=== PATIENT | male | born 1980 | race Caucasian/White ===

== ENCOUNTER 2021-01-09 09:41 | Emergency (ER) | payer SELFPAY ==
[2021-01-09] MEDS ORDERED: Sodium Chloride 0.9% 2.5 ML Syringe FLUSH PRN (12:06)
[2021-01-09] MEDS ORDERED: Sodium Chloride 0.9% 10 ML Syringe FLUSH PRN (12:06)
[2021-01-09] MEDS ORDERED: cefTRIAXone 1 GM in Premix Bag 1 BAG IV ONE (13:01)
[2021-01-09 13:02] LABS: BLOOD UREA NITROGEN,BUN 16 mg/dL (7.0-18.0); CARBON DIOXIDE,CO2 26.7 mmol/L (21.0-32.0); CHLORIDE,CL 102 mmol/L (98-107); GLUCOSE RANDOM 104 mg/dL (74-106); POTASSIUM,K 3.7 mmol/L (3.5-5.1); SODIUM,NA 139 mmol/L (136-148)
[2021-01-09] MEDS ORDERED: Ketorolac 30 MG/ML SDV IVPUSH ONE (13:02)
[2021-01-09] MEDS ORDERED: Sodium Chloride 0.9% 1,000 ML IV ONE (13:02)
[2021-01-09] MEDS ORDERED: Iopamidol 755 MG/ML 500 ML Multipack Bottle IVPUSH ONE (13:39)
[2021-01-09] MEDS ORDERED: LORazepam 2 MG/ML SDV IVPUSH ONE ×2 (13:45→14:54)
--- NOTE | 2021-01-09 14:04 | CT ---
Indication: Left-sided abscess Technique: Volumetric multidetector CT images of the cervical soft tissues were obtained after the administration of low osmolar intravenous contrast. 75 cc Isovue 370 low osmolar intravenous contrast Comparison: None available. Findings: The partially visualized brain parenchyma is normal in attenuation without evidence of abnormal enhancement. The orbits and their contents are within normal limits. The paranasal sinuses are clear. The mastoid air cells are clear. The nasopharynx is unremarkable. The fossae of Rosenmuller are clear. The oropharynx is unremarkable. The hypopharynx is clear. There is demonstration of a rim enhancing fluid collection within the posterior left cervical triangle measuring 3.7 by 3.8 centimeters with marked inflammatory change and irregular appearance along the inferior margin of the abscess with abutment of the trapezius musculature. The vocal folds are nonthickened with symmetrical appearance. The thyroid gland is normal in attenuation. There are reactive left cervical lymph nodes seen within the left posterior triangle and left II. The jugular veins are patent. The carotid arteries demonstrate no significant atherosclerotic narrowing. The lung apices are clear. The cervical vertebral body heights are grossly maintained with straightening band or reversal of the normal cervical lordosis. There is no acute osseous abnormality. Impression: Demonstration of a large rim enhancing fluid collection within the subcutaneous soft tissues of the left posterior triangle measuring up to 3.7 x 3.8 centimeters with moderate inflammatory changes along the inferior margin with associated reactive lymph nodes. Finding likely represents a large infected sebaceous cyst. A cystic mass or necrotic lymph node is not entirely excluded. Further evaluation with percutaneous drainage may be useful for improved characterization. Please note that all CT scans at this facility use dose modulation, iterative reconstruction, and/or weight-based dosing when appropriate to reduce radiation dose to as low as reasonably achievable. Dictated by Eleno Black MD @ 01/09/2021 2:03:[address] Eleno Black @ Jan 09 2021 2:03PM
[2021-01-09] MEDS ORDERED: Lidocaine 1% with EPINEPHrine 1:100,000 20 ML MDV INJECT ONE (14:45)
--- NOTE | 2021-01-09 15:31 | EDM.PDOC ---
ED HPI GENERAL MEDICAL PROBLEM - General Chief Complaint: Skin Complaint Stated Complaint: LUMP ON THROAT Time Seen by Provider: 01/09/21 09:50 Source of Information: Reports: Patient History Limitations: Reports: No Limitations - History of Present Illness INITIAL COMMENTS - FREE TEXT/NARRATIVE: HISTORY AND PHYSICAL: History of present illness: Patient is a 40-year-old male who presents to the ED today with concern of infection to left side of his neck x1 day. Patient states that he has had a cyst of the left side of his neck for several years and states that it has been uncomplicated and has not had any issues with it. Patient states that starting yesterday, the cyst began become being red and inflamed and concern for about be infected. Patient states that he has a history of anxiety but denies any other health history. Patient denies any other associated symptoms. Patient denies fever, chills, chest pain, shortness of breath, or cough. Denies headache, neck stiff ness, change in vision, syncope, or near syncope. Denies nausea, vomiting, abdominal pain, diarrhea, constipation, or dysuria. Has not noted any blood in urine or stool. Patient has been eating and drinking appropriately. Review of systems: As per history of present illness and below otherwise all systems reviewed and negative. Past medical history: As per history of present illness and as reviewed below otherwise noncontributory. Surgical history: As per history of present illness and as reviewed below otherwise noncontributory. Social history: See social history for further information Family history: As per history of present illness and as reviewed below otherwise noncontributory. Physical exam: General: Patient is alert, oriented, and in no acute distress. Patient sitting comfortably on exam table, anxious appearing. Vitals stable and reviewed by me. HEENT: There is a 4cm x 4cm abcess of the left sided neck with surrounding cellulitis of the abscess. Patient has full range of motion of the complete neck and left upper extremity without difficulty. Otherwise, atraumatic, normocephalic, pupils equal and reactive bilaterally, negative for conjunctival pallor or scleral icterus, mucous membranes moist, TMs normal bilaterally, throat clear, neck supple, nontender, trachea midline. No drooling or trismus noted. No meningeal signs. No hot potato voice noted. Lungs: Clear to auscultation, breath sounds equal bilaterally, chest nontender. Heart: S1S2, regular rate and rhythm without overt murmur Abdomen: Soft, nondistended, nontender. Negative for masses or hepatosplenomegaly. Negative for costovertebral tenderness. Pelvis: Stable nontender. Genitourinary: Deferred. Rectal: Deferred. Skin: Intact, warm, dry. No lesions or rashes noted. Extremities: Atraumatic, negative for cords or calf pain. Neurovascular unremarkable. Neuro: Awake, alert, oriented. Cranial nerves II through XII unremarkable. Cerebellum unremarkable. Motor and sensory unremarkable throughout. Exam nonfocal. Notes: Patient is a 40-year-old male who presents to the ED today secondary to abscess to left-sided neck. Upon arrival to the ED, patient is vitally stable and well-appearing on exam. He does have an abscess with surrounding cellulitis of the left sided neck with surrounding cellulitis extending around the area of abscess. Due to the location of the abscess, will obtain lab work and imaging to further assess the extent of the infection. CBC shows a leukocytosis at 17.57, otherwise remainder of CBC unremarkable with a lactate within normal limits.. CMP shows an isolated elevated bilirubin at 3.2, otherwise CMP unremarkable. Will obtain blood cultures. Soft tissue neck CT with contrast demonstrates a large rim-enhancing fluid collection within the subcutaneous soft tissue of the left posterior triangle measuring up to 3.7 x 3.8 cm with moderate inflammatory changes along the inferior margin with associated reactive lymph nodes. Findings likely represent a large infected sebaceous cyst. A cystic mass or necrotic lymph node is not entirely excluded. Further evaluation with percutaneous drainage may be useful for improved characterization. I did call and speak to Dr. Gordon, general surgery, and thoroughly discussed patient's case. Per Dr. Gordon, she recommends I drain in here in the ED, place on antibiotics, and she will follow up with patient on Saturday12/14/20. See procedure note below for abscess incision and drainage. Patient does have a history of anxiety and does appear quite anxious about the procedure today. Will provide patient with Ativan prior to procedure. Strict return precautions thoroughly discussed with patient. Discussed importance for follow-up with a primary care provider and Dr. Gordon on Saturday. Voices understanding and is agreeable to plan of care. Denies any further questions or concerns at this time. Diagnostics: CBC, CMP, lactate, blood cultures x2, wound culture Therapeutics: Saline, Rocephin, abscess incision and drainage, Ativan Prescription: Keflex, Bactrim DS Impression: Abscess, left side of neck Plan: 1. Take medication as prescribed. You can alternate ibuprofen and Tylenol as directed for pain and discomfort. 2. Follow-up with a general surgeon, Dr. Gordon, on Saturday as discussed. Call her clinic in the morning to establish an appointment time. 3. Keep iodoform dressing in place for 48 hours before removing as discussed. Return to the ED as discussed. Definitive disposition and diagnosis as appropriate pending reevaluation and review of above. left neck/shoulder Pain Score (Numeric/FACES): 8 - Related Data Allergies Allergy/AdvReac Type Severity Reaction Status Date / Time No Known Allergies Allergy Verified 01/09/21 11:56 Home Meds: Home Meds Dextroamphetamine/Amphetamine [Dextroamp-Amphet ER 30 mg Cap] 01/09/21 [History] Sulfamethoxazole/Trimethoprim [Bactrim Ds Tablet] 1 each PO BID 10 Days #20 tablet 01/09/21 [Rx] cephALEXin [Keflex] 500 mg PO Q8H 10 Days #30 cap 01/09/21 [Rx] Past Medical History - Past Health History Medical/Surgical History: Denies Medical/Surgical History HEENT History: Reports: None Cardiovascular History: Reports: None Respiratory History: Reports: None Gastrointestinal History: Reports: None Genitourinary History: Reports: None Musculoskeletal History: Reports: None Neurological History: Reports: None Psychiatric History: Reports: ADHD, Anxiety, Depression Endocrine/Metabolic History: Reports: None Hematologic History: Reports: None Immunologic History: Reports: None Oncologic (Cancer) History: Reports: None Dermatologic History: Reports: None - Infectious Disease History Infectious Disease History: Reports: None - Past Surgical History Head Surgeries/Procedures: Reports: None Social & Family History - Family History Family Medical History: No Pertinent Family History - Tobacco Use Tobacco Use Status *Q: Current Every Day Tobacco User Years of Tobacco use: 25 Packs/Tins Daily: 2 - Caffeine Use Caffeine Use: Reports: Energy Drinks - Recreational Drug Use Recreational Drug Use: No ED ROS GENERAL - Review of Systems Review Of Systems: Comprehensive ROS is negative, except as noted in HPI. ED EXAM, SKIN/RASH Exam: See Below (See dictation) ED SKIN PROCEDURES - I&D Site: Left side of neck Skin Prep: Providone-Iodine (Betadine) Local Anesthesia: Lidocaine: 1% with EPI Local Anesthetic Volume: 5cc Area Incised With: 11 Blade Drainage: Purulent, Bloody, Large Amount Probed to Break Up Loculations: Yes Packed With: 1/4 in. Iodoform Sterile Dressing: Adhesive Dressing, 4x4(s) Complications: No Progress/Comments: The procedure, benefits, and risks including bleeding, worsening infection, or injury of surrounding tissues, anesthesia, or allergic reaction and alternatives explained to the patient who voiced understanding of the information. His questions were sought and answered. Patient agreed to procedure. Patient tolerate procedure well. Course - Vital Signs Last Recorded V/S: Last Vital Signs Temp 98.2 F 01/09/21 15:20 Pulse 87 01/09/21 15:20 Resp 18 01/09/21 15:20 BP 143/89 H 01/09/21 15:20 Pulse Ox 99 01/09/21 15:20 - Orders/Labs/Meds Orders: Active Orders 24 hr Category Date Time Status CULTURE BLOOD [BC] Stat Lab 01/09/21 13:10 Received CULTURE BLOOD [BC] Stat Lab 01/09/21 13:15 Received CULTURE, ANAEROBE & AEROBE [MREF] Stat Lab 01/09/21 15:13 Received Sodium Chloride 0.9% [Saline Flush] Med 01/09/21 12:06 Active 10 ml FLUSH ASDIRECTED PRN Sodium Chloride 0.9% [Saline Flush] Med 01/09/21 12:06 Active 2.5 ml FLUSH ASDIRECTED PRN Blood Culture x2 Reflex Set [OM.PC] Stat Oth 01/09/21 13:02 Ordered Saline Lock Insert [OM.PC] Stat Oth 01/09/21 12:06 Ordered Medication Orders Sodium Chloride (Sodium Chloride 0.9% 10 Ml Syringe) 10 ml FLUSH ASDIRECTED PRN PRN Reason: Keep Vein Open Last Admin: 01/09/21 13:21 Dose: 10 ml Documented by: BONNIE Sodium Chloride (Sodium Chloride 0.9% 2.5 Ml Syringe) 2.5 ml FLUSH ASDIRECTED PRN PRN Reason: Keep Vein Open Last Admin: 01/09/21 13:21 Dose: 2.5 ml Documented by: BONNIE Labs: Laboratory Tests 0701/09/21 01/09/21 Range/Units 12:17 12:17 13:10 WBC 17.57 H (4.0-11.0) K/uL RBC 5.02 (4.50-5.90) M/uL Hgb 15.8 (13.0-17.0) g/dL Hct 44.9 (38.0-50.0) % MCV 89.4 (80.0-98.0) fL MCH 31.5 (27.0-32.0) pg MCHC 35.2 (31.0-37.0) g/dL RDW Std Deviation 42.0 (28.0-62.0) fl RDW Coeff of Gabby 13 (11.0-15.0) % Plt Count 341 (150-400) K/uL MPV 11.20 (7.40-12.00) fL Neut % (Auto) 69.0 (48.0-80.0) % Lymph % (Auto) 18.4 (16.0-40.0) % [place] % (Auto) 12.1 (0.0-15.0) % Eos % (Auto) 0.3 (0.0-7.0) % Baso % (Auto) 0.2 (0.0-1.5) % Neut # (Auto) 12.1 H (1.4-5.7) K/uL Lymph # (Auto) 3.2 H (0.6-2.4) K/uL [place] # (Auto) 2.1 H (0.0-0.8) K/uL Eos # (Auto) 0.1 (0.0-0.7) K/uL Baso # (Auto) 0.0 (0.0-0.1) K/uL Nucleated RBC % 0.0 /100WBC Nucleated RBCs # 0 K/uL Sodium 139 (136-148) mmol/L Potassium 3.7 (3.5-5.1) mmol/L Chloride 102 (98-107) mmol/L Carbon Dioxide 26.7 (21.0-32.0) mmol/L BUN 16 (7.0-18.0) mg/dL Creatinine 1.2 (0.8-1.3) mg/dL Est Cr Clr Drug Dosing 88.92 mL/min Estimated GFR (MDRD) > 60.0 ml/min Glucose 104 (74-106) mg/dL Lactic Acid 1.1 (0.4-2.0) mmol/L Calcium 8.8 (8.5-10.1) mg/dL Total Bilirubin 3.2 H (0.2-1.0) mg/dL AST 20 (15-37) IU/L ALT 44 (14-63) IU/L Alkaline Phosphatase 78 (46-116) U/L Total Protein 7.4 (6.4-8.2) g/dL Albumin 3.8 (3.4-5.0) g/dL Globulin 3.6 (2.6-4.0) g/dL Albumin/Globulin Ratio 1.1 (0.9-1.6) Meds: Medications Generic Name Dose Route Start Last Admin Trade Name Veto PRN Reason Stop Dose Admin Sodium Chloride 10 ml 01/09/21 12:06 01/09/21 13:21 Sodium Chloride 0.9% 10 Ml Syringe FLUSH 10 ml ASDIRECTED PRN Administration Keep Vein Open Sodium Chloride 2.5 ml 01/09/21 12:06 01/09/21 13:21 Sodium Chloride 0.9% 2.5 Ml Syringe FLUSH 2.5 ml ASDIRECTED PRN Administration Keep Vein Open Discontinued Medications Generic Name Dose Route Start Last Admin Trade Name Veto PRN Reason Stop Dose Admin Ceftriaxone Sodium/Dextrose 1 50 mls @ 100 mls/hr 01/09/21 13:01 01/09/21 13:20 gm/ Premix IV 01/09/21 13:30 100 mls/hr ONETIME ONE Administration Sodium Chloride 1,000 mls @ 999 mls/hr 01/09/21 13:02 01/09/21 13:20 Normal Saline IV 01/09/21 14:02 999 mls/hr STAT ONE Administration Iopamidol 75 ml 01/09/21 13:39 01/09/21 13:40 Iopamidol 755 Mg/Ml 500 Ml Multipack Bottle IVPUSH 01/09/21 13:40 75 ml ONETIME ONE Administration Ketorolac Tromethamine 30 mg 01/09/21 13:02 01/09/21 13:20 Ketorolac 30 Mg/Ml Sdv IVPUSH 01/09/21 13:03 30 mg ONETIME ONE Administration Lidocaine/Epinephrine 20 ml 01/09/21 14:45 01/09/21 15:02 Lidocaine 1% With Epinephrine 1:100,000 20 Ml Mdv INJECT 01/09/21 14:46 20 ml ONETIME ONE Administration Lorazepam 0.5 mg 01/09/21 13:45 01/09/21 13:50 Lorazepam 2 Mg/Ml Sdv IVPUSH 01/09/21 13:46 0.5 mg ONETIME ONE Administration Lorazepam 0.5 mg 01/09/21 14:54 01/09/21 15:02 Lorazepam 2 Mg/Ml Sdv IVPUSH 01/09/21 14:55 0.5 mg ONETIME ONE Administration Departure - Departure Time of Disposition: 15:28 Disposition: Home, Self-Care 01 Clinical Impression: Abscess - Discharge Information Prescriptions: Sulfamethoxazole/Trimethoprim [Bactrim Ds Tablet] 1 each PO BID 10 Days #20 tablet cephALEXin [Keflex] 500 mg PO Q8H 10 Days #30 cap Referrals: PCP,None [Primary Care Provider] - Forms: ED Department Discharge Additional Instructions: The following information is given to patients seen in the emergency department who are being discharged to home. This information is to outline your options for follow-up care. We provide all patients seen in our emergency department with a follow-up referral. The need for follow-up, as well as the timing and circumstances, are variable depending upon the specifics of your emergency department visit. If you don't have a primary care physician on staff, we will provide you with a referral. We always advise you to contact your personal physician following an emergency department visit to inform them of the circumstance of the visit and for follow-up with them and/or the need for any referrals to a consulting specialist. The emergency department will also refer you to a specialist when appropriate. This referral assures that you have the opportunity for follow-up care with a specialist. All of these measure are taken in an effort to provide you with optimal care, which includes your follow-up. Under all circumstances we always encourage you to contact your private physician who remains a resource for coordinating your care. When calling for follow-up care, please make the office aware that this follow-up is from your recent emergency room visit. If for any reason you are refused follow-up, please contact the [facility] Emergency Department at and asked to speak to the emergency department charge nurse. GETAC[facility] [address] [place] [address] [facility] [address] [place] [address] [facility] - General Surgery, Dr. Gordon Professional Building [address], [address] [place] [address] 1. Take medication as prescribed. You can alternate ibuprofen and Tylenol as directed for pain and discomfort. 2. Follow-up with a general surgeon, Dr. Valdes, on Saturday as discussed. Call her clinic in the morning to establish an appointment time. 3. Keep iodoform dressing in place for 48 hours before removing as discussed. Return to the ED as discussed. Sepsis Event Note (ED) - Evaluation Sepsis Screening Result: No Definite Risk - Focused Exam Vital Signs: Vital Signs Temp Pulse Resp BP Pulse Ox 01/09/21 15:20 98.2 F 87 18 143/89 H 99 01/09/21 13:57 84 18 141/72 H 98 01/09/21 12:55 92 20 133/73 99 01/09/21 11:52 97.7 F 102 H 18 124/92 H 98 - My Orders Last 24 Hours: My Active Orders 01/09/21 12:06 Sodium Chloride 0.9% [Saline Flush] 10 ml FLUSH ASDIRECTED PRN Sodium Chloride 0.9% [Saline Flush] 2.5 ml FLUSH ASDIRECTED PRN Saline Lock Insert [OM.PC] Stat 01/09/21 13:02 Blood Culture x2 Reflex Set [OM.PC] Stat 01/09/21 13:10 CULTURE BLOOD [BC] Stat 01/09/21 13:15 CULTURE BLOOD [BC] Stat 01/09/21 15:13 CULTURE, ANAEROBE & AEROBE [MREF] Stat - Assessment/Plan Last 24 Hours: My Active Orders 01/09/21 12:06 Sodium Chloride 0.9% [Saline Flush] 10 ml FLUSH ASDIRECTED PRN Sodium Chloride 0.9% [Saline Flush] 2.5 ml FLUSH ASDIRECTED PRN Saline Lock Insert [OM.PC] Stat 01/09/21 13:02 Blood Culture x2 Reflex Set [OM.PC] Stat 01/09/21 13:10 CULTURE BLOOD [BC] Stat 01/09/21 13:15 CULTURE BLOOD [BC] Stat 01/09/21 15:13 CULTURE, ANAEROBE & AEROBE [MREF] Stat
== END 2021-01-09 15:59 | disposition home or self-care (01) ==
LOC: MW.ED 09:41
DX: L02.11 Cutaneous abscess of neck (principal)
CPT/HCPCS: 10060; 36415; 70491; 80053; 83605; 85025; 87040; 87070; 87075; 87205; 96365; 96366; 96375; 96376; 99283; J0696; J1885; J2060; J7030; Q9967

== ENCOUNTER 2022-02-06 19:02 | Emergency (ER) | payer OTHER ==
[2022-02-06] MEDS ORDERED: Lidocaine 1% 5 ML VIAL INJECT ONE (19:05)
[2022-02-06] MEDS ORDERED: Diphtheria,Pertussis(Acell),Tetanus Vaccine 0.5 ML Syringe IM ONE (19:05)
[2022-02-06] MEDS ORDERED: Lidocaine 1% with EPINEPHrine 1:100,000 10 ML MDV INJECT ONE (19:15)
== END 2022-02-06 19:59 | disposition home or self-care (01) ==
LOC: MW.ED 19:02
DX: S61.412A Laceration without foreign body of left hand, initial encounter (principal); W26.9XXA Contact with unspecified sharp object(s), initial encounter; Z23 Encounter for immunization
CPT/HCPCS: 12002; 90471; 90715; 99282-25